=== PATIENT | female | born 1990 | race Caucasian/White ===

== ENCOUNTER 2019-10-05 10:27 | Emergency (ER) | payer OTHER ==
[2019-10-05 10:42] VITALS: BP 127/90; PULSE 77; RESP 18; TEMP 98.2
--- NOTE | 2019-10-05 10:58 | ED ---
General Adult HPI - General Chief complaint: Extremity Injury, Upper Stated complaint: poss elbow dislocation Time Seen by Provider: 10/05/19 10:44 Source: patient, RN notes reviewed, old records reviewed Mode of arrival: ambulatory Limitations: no limitations - History of Present Illness Initial comments: Patient is a 29-year-old female presents emergency room today with left elbow pain after she was rollerblading and fell over the weekend. She reports she's had a significant amount of swelling and lack range of motion since then. She reports pain with pronation and supination. She reports she's had a previous elbow dislocation which was younger. Patient states that she is able to flex and extend just a few degrees with patient's elbow in the 90 angle. Patient states that she's had no head injury or any other complaints. She will occasionally get some tingling sensation down in the hand and will shoot up the arm to the shoulder. - Related Data Previous Rx's Medication Instructions Recorded Ibuprofen [Motrin] 600 mg PO Q8HR PRN #20 tab 10/05/19 Allergies Allergy/AdvReac Type Severity Reaction Status Date / Time No Known Allergies Allergy Verified 10/05/19 10:41 Review of Systems ROS Statement: Those systems with pertinent positive or pertinent negative responses have been documented in the HPI. ROS Other: All systems not noted in ROS Statement are negative. 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 Alert and oriented. No significant distress. Limitations: no limitations General appearance: alert, in no apparent distress Head exam: Present: atraumatic, normocephalic, normal inspection Eye exam: Present: normal appearance, PERRL, EOMI. Absent: scleral icterus, conjunctival injection, periorbital swelling ENT exam: Present: normal exam, mucous membranes moist Neck exam: Present: normal inspection. Absent: tenderness, meningismus, lymphadenopathy Respiratory exam: Present: normal lung sounds bilaterally. Absent: respiratory distress, wheezes, rales, rhonchi, stridor Cardiovascular Exam: Present: regular rate, normal rhythm, normal heart sounds. Absent: systolic murmur, diastolic murmur, rubs, gallop, clicks GI/Abdominal exam: Present: soft, normal bowel sounds. Absent: distended, tenderness, guarding, rebound, rigid Extremities exam: Present: normal inspection, full ROM, normal capillary refill. Absent: tenderness, pedal edema, joint swelling, calf tenderness Left Shoulder Exam: Present: normal inspection, full ROM Upper Arm exam: Present: normal inspection, full ROM Elbow exam: Present: tenderness, swelling. Absent: normal inspection, full ROM (Patient's elbow is then to 90 with pain with pronation and supination. She is able to extend 115 and flex to 60.) Forearm Wrist exam: Present: normal inspection, full ROM Hand Wrist exam: Present: normal inspection, full ROM Neuro motor exam: Present: wrist extension intact, thumb opposition intact, thumb IP flexion intact, thumb adduction intact, fingers 2-5 abduction intact Vascular: Present: normal capillary refill Back exam: Present: normal inspection Neurological exam: Present: alert, oriented X3, CN II-XII intact Psychiatric exam: Present: normal affect, normal mood Course Vital Signs 10/05/19 10:35 Temperature 98.2 F Pulse Rate 77 Respiratory 18 Rate Blood Pressure 127/90 O2 Sat by Pulse 98 Oximetry Procedures - Orthopedic Splinting/Casting Injury #1 Side: left Upper Extremity Injury Location: elbow Upper Extremity Immobilizer: posterior splint Additional Comments: is reevaluated after splint was placed and is neurovascularly intact. Medical Decision Making - Medical Decision Making 29-year-old female presents with significant left elbow joint effusion after she fell back on her elbow while roller blading over the weekend. She has some pain with flexion and extension and unable to pronate and supinate without pain. Exam she has normal capillary refill less than 2 seconds and radial pulses 2+. 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 Patient reports previous elbow dislocation when she was 15 years old. X-ray today shows no acute fracture but evidence of joint effusion concern for internal derangement of the joint. Patient does have a joint effusion noted as well. Department results. Due to concern for occult injury Patient will be placed in a splint and advised follow-up with orthopedic. She was also placed in a sling. Discussed return parameters and orthopedic follow-up. - Radiology Data Radiology results: report reviewed X-ray shows underlying elbow joint effusion which can be seen with an occult internal derangement. No acute fracture seen at this time. Some chronic bony changes the elbow including degenerative changes at the radial That she'll or joint chronic tendinopathy of the common extensor tendon origin and a corticated 1.2 cm bone fragment along the proximal radial shaft possibly from prior distal biceps tendon injury. Disposition Clinical Impression: Effusion of elbow joint, left Disposition: HOME SELF-CARE Condition: Good Instructions (If sedation given, give patient instructions): Elbow Fracture (ED), Elbow Sprain (ED) Additional Instructions: Please use medication as discussed. Please follow up with orthopedic. Remain in splint and sling until ortho follow up. Please return to the emergency room if your symptoms increase or worsen or for any other concerns. Prescriptions: Ibuprofen [Motrin] 600 mg PO Q8HR PRN #20 tab PRN Reason: Pain Is patient prescribed a controlled substance at d/c from ED?: No Referrals: Jori Foote MD [Primary Care Provider] - 1-2 days Time of Disposition: 11:18
--- NOTE | 2019-10-05 11:09 | XR ---
EXAMINATION TYPE: XR elbow complete LT DATE OF EXAM: 10/05/2019 COMPARISON: NONE HISTORY: 29-year-old female with swelling and pain TECHNIQUE: 3 views FINDINGS: Bony irregularity and spurring about the radiocapitellar joint. Corticated ossific density and enthes opathy at the lateral epicondyle measuring up to 7 mm. Additional 1.1 cm corticated ossific density a long the proximal radial shaft. No acute fracture, subluxation, or dislocation is seen. However, ther e is an underlying elbow joint effusion. IMPRESSION: 1. Underlying elbow joint effusion which can be seen with an occult internal derangement. No acute fr acture seen at this time. 2. Some chronic bony changes at the elbow including degenerative change at the radiocapitellar joint, chronic tendinopathy at the common extensor tendon origin, and a corticated 1.1 cm bone fragment joycelyn ng the proximal radial shaft, possibly from prior distal biceps tendon injury. Clinically correlate.
[2019-10-05] MEDS ORDERED: IBUPROFEN 600 MG STARTER PACK 4 TAB BTL PO STA (11:14)
[2019-10-05] MEDS ORDERED: ACET/COD 300 MG/30 MG STARTER PACK 6 TAB BTL PO STA (11:14)
== END 2019-10-05 11:40 | disposition home or self-care (01) ==
LOC: EC 10:27
DX: M25.422 Effusion, left elbow (principal); F17.200 Nicotine dependence, unspecified, uncomplicated
CPT/HCPCS: 29105; 99284

== ENCOUNTER 2024-12-06 20:04 | Emergency (ER) | payer OTHER ==
[2024-12-06 20:11] VITALS: RESP 18; TEMP 98.2
--- NOTE | 2024-12-06 20:23 | ED ---
Wound/Laceration HPI - General Chief Complaint: Wound/Laceration Stated Complaint: R Leg Infection Time Seen by Provider: 12/06/24 20:22 Source: patient, RN notes reviewed Mode of arrival: ambulatory Limitations: no limitations - History of Present Illness Initial Comments: 34-year-old female presented the ER for evaluation of a wound. Patient states a bout 3 weeks ago she accidentally cut her right calf while shaving. She states over the past 3 weeks she has noticed increasing size of her wound. She states over the past couple days she has noticed yellow drainage of the wound. She has been cleaning it with warm soapy water and keeping it covered with a Band-Aid. Patient is concerned of infection. She has not been on prior antibiotics or ev aluated for this. Patient is nondiabetic but does admit to a history of MRSA. She denies any fevers or chills. Patient states she has no pain or difficulty with ambulation. - Related Data Previous Rx's Medication Instructions Recorded Ibuprofen [Motrin] 600 mg PO Q8HR PRN #20 tab 10/05/19 Cephalexin [Keflex] 500 mg PO Q6HR #40 cap 12/06/24 Sulfamethox-Tmp 800-160Mg [Bactrim 1 each PO Q12HR #20 tab 12/06/24 Ds] Allergies Allergy/AdvReac Type Severity Reaction Status Date / Time No Known Allergies Allergy Verified 12/06/24 20:11 Review of Systems ROS Statement: Those systems with pertinent positive or pertinent negative responses have been documented in the HPI. ROS Other: All systems not noted in ROS Statement are negative. 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 Head: Normocephalic, atraumatic Eyes: PERRLA, EOMI ENT: Airway patent Chest: Nonlabored breathing Skin: No visual rash, normal skin tone, wound to right inner calf Neuro: Alert and oriented 3 Musculoskeletal: No gross abnormalities Limitations: no limitations General appearance: alert, in no apparent distress Respiratory exam: Present: normal lung sounds bilaterally. Absent: respiratory distress, wheezes, rales, rhonchi, stridor Cardiovascular Exam: Present: regular rate, normal rhythm, normal heart sounds. Absent: systolic murmur, diastolic murmur, rubs, gallop, clicks Extremities exam: Present: full ROM, tenderness, normal capillary refill (2+ right DP/PT pulses.) Neurological exam: Present: alert, oriented X3, CN II-XII intact Skin exam: Present: warm, dry, intact, normal color, other (4 cm wound to right medial calf. Granulation tissue noted. Mild watery yellow drainage noted. No purulent drainage or surrounding erythema.). Absent: rash Course Vital Signs 12/06/24 12/06/24 20:05 21:40 Temperature 98.2 F 98.2 F Pulse Rate 110 H 101 H Respiratory 18 18 Rate Blood Pressure 128/84 132/78 O2 Sat by Pulse 98 98 Oximetry Medical Decision Making - Medical Decision Making I performed the quick note portion of this chart. Electronically signed by Yuni Mejia PA-C Was pt. sent in by a medical professional or institution ([facility], COMIC BOOK WRITER, urgent care, hospital, or retirement...) When possible be specific @ -No Did you speak to anyone other than the patient for history (EMS, parent, family, police, friend...)? What history was obtained from this source @ -No Did you review nursing and triage notes (agree or disagree)? Why? @ -I reviewed and agree with nursing and triage notes Were old charts reviewed (outside hosp., previous admission, EMS record, old EKG , old radiological studies, urgent care reports/EKG's, retirement records)? Report findings @ -No old charts were reviewed Differential Diagnosis (chest pain, altered mental status, abdominal pain women, abdominal pain men, vaginal bleeding, weakness, fever, dyspnea, syncope, headache, dizziness, GI bleed, back pain, seizure, CVA, palpatations, mental health, musculoskeletal)? @ -Cellulitis, abscess, laceration... This list is not meant to be all- inclusive EKG interpreted by me (3pts min.). @ -None done X-rays interpreted by me (1pt min.). @ -None done CT interpreted by me (1pt min.). @ -None done U/S interpreted by me (1pt. min.). @ -None done What testing was considered but not performed or refused? (CT, X-rays, U/S, labs)? Why? @ -None What meds were considered but not given or refused? Why? @ -None Did you discuss the management of the patient with other professionals (professionals i.e. Dr., PA, COMIC BOOK WRITER, lab, RT, psych nurse, high school social studies tutor, in flight technician, teacher, electronic warfare officer, case manager specialist)? Give summary @ -No Was smoking cessation discussed for >3mins.? @ -No Was critical care preformed (if so, how long)? @ -No Were there social determinants of health that impacted care today? How? (Homelessness, low income, unemployed, alcoholism, drug addiction, transportation, low edu. Level, literacy, decrease access to med. care, [facility], rehab)? @ -No Was there de-escalation of care discussed even if they declined (Discuss DNR or withdrawal of care, Hospice)? DNR status @ -No What co-morbidities impacted this encounter? (DM, HTN, Smoking, COPD, CAD, Cancer, CVA, ARF, Chemo, Hep., AIDS, mental health diagnosis, sleep apnea, morbid obesity)? @ -None Was patient admitted / discharged? Hospital course, mention meds given and route, prescriptions, significant lab abnormalities, going to OR and other pertinent info. @ -Discharge. 34-year-old female presented to ER for wound evaluation. Vital signs stable. Patient in no signs of acute distress. Exam remarkable for a 4 cm wound to right medial calf. Patient denying any pain, fevers or chills. Right lower extremity neurovascular intact. Given concern of infection patient will be started on Keflex and Bactrim, first dose in the emergency department. Advised close follow-up with PCP for reevaluation. Strict return parameters discussed. Patient discharged stable condition. Patient verbally expressed understanding agree with care plan. Case discussed with ED attending of . Undiagnosed new problem with uncertain prognosis? @ -No Drug Therapy requiring intensive monitoring for toxicity (Heparin, Nitro, Insulin, Cardizem)? @ -No Were any procedures done? @ -No Diagnosis/symptom? @ -Wound infection Acute, or Chronic, or Acute on Chronic? @ -Acute Uncomplicated (without systemic symptoms) or Complicated (systemic symptoms)? @ -Uncomplicated Side effects of treatment? @ -No Exacerbation, Progression, or Severe Exacerbation? @ -No Poses a threat to life or bodily function? How? (Chest pain, USA, SC, pneumonia, PE, COPD, DKA, ARF, appy, cholecystitis, CVA, Diverticulitis, Homicidal, Suicidal, threat to staff... and all critical care pts) @ -No Disposition Clinical Impression: Wound infection Disposition: HOME SELF-CARE Condition: Stable Instructions (If sedation given, give patient instructions): Wound Infection (DC), Acute Wound Care (ED) Additional Instructions: Take antibiotics as prescribed. Follow-up with PCP. Return to the ER for any new or worsening concerns. Prescriptions: Sulfamethox-Tmp 800-160Mg [Bactrim Ds] 1 each PO Q12HR #20 tab Cephalexin [Keflex] 500 mg PO Q6HR #40 cap Is patient prescribed a controlled substance at d/c from ED?: No Referrals: Rudy Aguilera MD [Primary Care Provider] - 1-2 days Time of Disposition: 21:17
[2024-12-06] MEDS: SULFAMETHOX-TMP 800-160MG 1 EACH TAB PO STA (21:38)
[2024-12-06] MEDS: CEPHALEXIN 500 MG CAP PO STA (21:38)
[2024-12-06 21:42] VITALS: BP 132/78; PULSE 101
== END 2024-12-06 21:41 | disposition home or self-care (01) ==
LOC: EC 20:04
DX: S81.811A Laceration without foreign body, right lower leg, initial encounter (principal); F17.200 Nicotine dependence, unspecified, uncomplicated; W26.8XXA Contact with other sharp object(s), not elsewhere classified, initial encounter; Y93.E8 Activity, other personal hygiene
CPT/HCPCS: 99282